=== PATIENT | female | born 1960 | race Caucasian/White ===

== ENCOUNTER 2016-11-23 21:21 | Emergency (ER) | payer OTHER ==
[~2016-11-23] VITALS: Ht 157.5 cm; Wt 60.5 kg
[~2016-11-23 21:21] MED LIST: IBUP-725 PO; MULT-236
[2016-11-23 21:22] VITALS: Ht 157.5 cm; Wt 60.5 kg
[2016-11-23] MEDS ORDERED: CETI10CA PO (21:48)
[2016-11-23] MEDS ORDERED: IBUP400T22 PO (21:48)
[2016-11-23] MEDS ORDERED: GUAI120S26 PO (21:48)
[2016-11-23] MEDS ORDERED: ALBU8.5H3 INH (21:48)
[2016-11-23] MEDS ORDERED: FLUT9.9S NASAL (21:48)
--- NOTE | 2016-11-23 21:56 | ERD ---
ER Documentation Chief Complaint Date/Time DATE: 11/23/16 TIME: 21:54 Chief Complaint cough x 1 week, chest congestion HPI 65-year-old female presents to emergency department for complete of cough for one, runny nose nasal congestion on and off wheezing. Patient has been having dry cough, does not cough up any phlegm or blood. Patient has wheezing episodes. Patient denies any chest pain or palpitations. Patient denies any palpitations or irregular heartbeat. Patient's son is sick with the same symptoms. Patient did not take any medications to help with symptoms. ROS All systems reviewed and are negative except as per history of present illness. Medications Home Meds Active Scripts Ibuprofen* (Motrin*) 400 Mg Tab, 400 MG PO Q6H Y for PAIN AND OR ELEVATED TEMP, #30 TAB Prov:MEREDITH LUI NP 11/23/16 Cetirizine Hcl* (Zyrtec*) 10 Mg Capsule, 10 MG PO DAILY, #30 TAB.CHEW Prov:MEREDITH LUI NP 11/23/16 Hhowgkwczpn-R-Lphrhzgxbr Hb* (Guaifenesin* DM Syrup) 120 Ml Syrup, 10 ML PO Q4H Y for COUGH, #120 ML Prov:MEREDITH LUI NP 11/23/16 Fluticasone Propionate (Flonase Allergy Relief) 9.9 Ml [place].susp, 1 SPRAY NASAL BID, #1 BOTTLE TO EACH NOSTRIL Prov:MEREDITH LUI NP 11/23/16 Albuterol Sulfate* (Proair HFA*) 8.5 Gm Hfa.aer.ad, 2 PUFF INH Q4H Y for WHEEZING AND SOB, #1 INHALER Prov:MEREDITH LUI NP 11/23/16 Reported Medications [None] No Conflict Check 08/11/12 Allergies Allergies: Coded Allergies: No Known Allergies (Verified Allergy, Unknown, 08/05/14) PMhx/Soc Medical and Surgical Hx: pt denies Medical Hx, pt denies Surgical Hx Hx Alcohol Use: No Hx Substance Use: No Hx Tobacco Use: No FmHx Family History: No coronary disease, No diabetes, No other Physical Exam Vitals Vital Signs Date Time Temp Pulse Resp B/P Pulse Ox O2 Delivery O2 Flow Rate FiO2 11/23/16 21:22 98.2 68 20 109/67 100 Physical Exam GENERAL: The patient is well developed and appropriate for usual state of health, in no apparent distress. HEENT: Atraumatic. Ears: Normal tympanic membrane, no erythema or bulging. No ear canal swelling. No ear discharge. Nose: Erythematous nasal turbinates with clear nasal discharge discharge. Throat: oropharynx erythematous with postnasal drip. No tonsillar swelling or tonsillar exudates. No lymphadenopathy. CHEST: Clear to auscultation bilaterally. There are no rales, wheezes or rhonchi. HEART: Regular rate and rhythm. No murmurs, clicks, rubs or gallops. No S3 or S4. ABDOMEN: Soft, nontender and nondistended. Good bowel sounds. No rebound or guarding. No gross peritonitis. No gross organomegaly or masses. No Teague sign or McBurney point tenderness. BACK: No midline or flank tenderness. EXTREMITIES: Equal pulses bilaterally. There is no peripheral clubbing, cyanosis or edema. No focal swelling or erythema. Full range of motion. Grossly neurovascularly intact. NEURO: Alert and oriented. Cranial nerves 2-12 intact. Motor strength in all 4 extremities with 5/5 strength. Sensation grossly intact. Normal speech and gait. SKIN: There is no apparent rash or petechia. The skin is warm and dry. HEMATOLOGIC AND LYMPHATIC: There is no evidence of excessive bruising or lymphedema. No gross cervical, axillary, or inguinal lymphadenopathy. Procedures/MDM Medical Decision Making: Patient symptoms are most likely consistent with acute bronchitis, which viral in origin. There is low suspicion for Pneumonia at this time since patients lungs sounds are clear, patient O2 saturation is normal and patient doesnt show any respiratory distress. Radiology exam is not indicated at this time. There is low suspicion for other cardiopulmonary emergencies at this time such as CHF, Pulmonary Embolism, Pneumothorax, or any other cardiopulmonary emergencies at this time. There is low suspicion for sepsis. Patient appears well and is hemodynamically stable. Fever is controlled with medicines. Disposition: Home. Condition: Stable Prescriptions: Guaifenesin DM Zyrtec ibuprofen albuterol Flonase Instructions: Patient is advised to take medications as prescribed. Patient is advised to rest. Patient advised to increase fluid intake, do humidifier at home and if possible, do salt water gargles. Patient is advised that if symptoms are worse, shortness of breath, uncontrolled fever, stridor, vomiting, worst signs and symptoms to return to emergency department immediately. Otherwise, patient is advised to follow up with primary doctor in 5-7 days. Departure Diagnosis: Primary Impression: Acute bronchitis Bronchitis organism: unspecified organism Qualified Code: J20.9 - Acute bronchitis, unspecified organism Patient Instructions: Bronchitis With Wheezing (Adult) Referrals: ALLISON BELTRE CARLA MAE T. NP Nov 23, 2016 21:56
== END 2016-11-23 21:50 | disposition home or self-care (01) ==
LOC: E/R 21:21 → EDUNIT# 21:21 → E/R 21:50
DX: J20.9 Acute bronchitis, unspecified (principal)